=== PATIENT | female | born 1990 | race Hispanic/Latino ===

== ENCOUNTER 2020-03-25 22:47 | Emergency (ER) | payer OTHER, SELFPAY | END 2020-03-26 00:26 | disposition home or self-care (01) | LOC: EDH 22:47 | DX: R05 Cough (principal); R19.7 Diarrhea, unspecified; R50.9 Fever, unspecified; Z20.828 Contact with and (suspected) exposure to other viral communicable diseases; E11.9 Type 2 diabetes mellitus without complications; Z91.041 Radiographic dye allergy status; Z90.49 Acquired absence of other specified parts of digestive tract; Z72.0 Tobacco use ==